=== PATIENT | female | born 1965 | race Two or more races ===

== ENCOUNTER 2019-12-09 11:48 | Emergency (ER) | payer OTHER ==
[~2019-12-09] VITALS: Ht 160 cm; Wt 89.4 kg
[2019-12-09 11:50] VITALS: BP 144/79
--- NOTE | 2019-12-09 12:38 | NUR ---
Pt here for suture removal of abdomen from her post sbo. Pt denies any complications or concerns. Pt had sutures removed by MD. Pt had steri strips attached to abdomen.
--- NOTE | 2019-12-09 12:43 | NUR ---
Patient/Caregiver given discharge instructions and they have confirmed that they understand the instructions. Patient ambulatory with steady gait.
== END 2019-12-09 12:46 | disposition home or self-care (01) ==
LOC: ED 12:40
DX: S31.114D Laceration without foreign body of abdominal wall, left lower quadrant without penetration into peritoneal cavity, subsequent encounter (principal); X58.XXXD Exposure to other specified factors, subsequent encounter
CPT/HCPCS: 99281; 99282

== ENCOUNTER 2020-01-08 13:19 | Observation (INO) | payer OTHER ==
[~2020-01-08] VITALS: Ht 152.4 cm; Wt 88.8 kg
[2020-01-08] MEDS ORDERED: ASPIRIN 81 MG TABLET CHEW PO ONE (14:00)
[2020-01-08] MEDS ORDERED: ASPIRIN 81 MG TABLET EC ONE (14:01)
[2020-01-08 14:02] LABS: BASOPHILS # (AUTO) 0.02 x10^3/uL (0-0.1); BASOPHILS % (AUTO) 0 % (0-1); EOSINOPHILS # (AUTO) 0.05 x10^3/uL (0-0.4); EOSINOPHILS % (AUTO) 1 % (1-7); LYMPHOCYTES # (AUTO) 1.14 x10^3/uL (1-3.4); LYMPHOCYTES % (AUTO) 15 % (22-44); MD NO; MEAN CORPUSCULAR HEMOGLOBIN 28.5 pg (27.0-34.8); MEAN CORPUSCULAR HGB CONC 32.6 g/dL (32.4-35.8); MEAN CORPUSCULAR VOLUME 87.5 fL (80-100); MEAN PLATELET VOLUME 9.9 fL (7.4-10.4); MONOCYTES # (AUTO) 0.46 x10^3/uL (0.2-0.8); MONOCYTES % (AUTO) 6 % (2-9); NEUTROPHILS # (AUTO) 5.96 x10^3/uL (1.8-6.8); NEUTROPHILS % (AUTO) 78 % (42-75); PLATELET COUNT 216 x10^3/uL (130-400); RED BLOOD COUNT 4.62 x10^6/uL (3.82-5.3); RED CELL DISTRIBUTION WIDTH 13.9 % (9.6-15.2)
[2020-01-08 14:14] LABS: ALANINE AMINOTRANSFERASE 38 U/L (12-78); ANION GAP 7 mmol/L (5-15); CALCIUM 9.1 mg/dL (8.5-10.1); CHLORIDE 108 mmol/L (98-107); CREATININE 0.76 mg/dL (0.55-1.02)
[2020-01-08 14:18] LABS: ALKALINE PHOSPHATASE 125 U/L (45-117); BILIRUBIN,TOTAL 0.3 mg/dL (0.2-1.0); TROPONIN I < 0.015 ng/mL (0.000-0.045)
--- NOTE | 2020-01-08 14:24 | NUR ---
pt presents to ED with c/o left sided chest pain onset 3 days ago, pt states pain is dull, with no aggravating factors. pain radiates to left neck and left arm. pt denies injury or trauma. pt states pain is 10/10, however pt remains calm and is conversing easily with providers and who is at bedside. pt denies recent travel, denies contraceptive use, pt denies sob. pt states she has not taken aspirin today and denies having any allergies. EKG taken in triage, lab results and cxr pending pt updated with POC, agreeable. at bedside. 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
[2020-01-08] MEDS ORDERED: ASPIRIN 81 MG TABLET CHEW ONE (14:29)
--- NOTE | 2020-01-08 14:33 | NUR ---
pt medicated per emar, tolerated well. all results back , chart up for recheck, awaiting MD and dispo.
--- NOTE | 2020-01-08 15:14 | NUR ---
report given to FLOYD Nunez who is assuming care.
[2020-01-08] MEDS ORDERED: TELM20TA PO (16:11)
--- NOTE | 2020-01-08 16:21 | NUR ---
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 aggrees to admission will place iv
[2020-01-08] MEDS ORDERED: POLYETHYLENE GLYCOL 17 GM PACKET PO PRN (16:30)
[2020-01-08] MEDS ORDERED: ACETAMINOPHEN 325 MG TABLET PO PRN (16:30)
[2020-01-08] MEDS ORDERED: ONDANSETRON ODT 4 MG PO PRN (16:30)
[2020-01-08] MEDS ORDERED: ONDANSETRON 2MG/ML, 2ML IVPush PRN (16:30)
[2020-01-08] MEDS ORDERED: DOCUSATE 100 MG CAPSULE PO PRN (16:30)
[2020-01-08 20:11] VITALS: BP 136/81
[2020-01-08] MEDS ORDERED: ATORVASTATIN 40 MG TABLET PO SCH (21:00)
[2020-01-08] MEDS ORDERED: OMNIPAQUE 350 MG/ML, 100ML BOTTLE ONE (21:38)
[2020-01-09 00:28] VITALS: BP 122/77
[2020-01-09 05:23] LABS: CHOL/HDL RATIO 3.5; CHOLESTEROL, TOTAL 255 mg/dL (140-239); HDL CHOL % 28 % (28-40); HDL CHOLESTEROL (DIRECT) 72 mg/dL (40-60); LDL CHOLESTEROL,CALCULATED 156 mg/dL (54-169); LDL/HDL RATIO 2.2 (0.5-3.0); TRIGLYCERIDES 136 mg/dL (50-200); TROPONIN I < 0.015 ng/mL (0.000-0.045); VLDL CHOLESTEROL 27 mg/dL (0-25)
[2020-01-09] MEDS ORDERED: ASPIRIN 81 MG TABLET EC PO SCH (06:00)
[2020-01-09 06:28] VITALS: BP 137/82
[2020-01-09 12:26] VITALS: BP 122/74
[2020-01-09] MEDS ORDERED: ATOR40TA78 PO (13:18)
== END 2020-01-09 16:00 | disposition home or self-care (01) ==
LOC: ED 14:52 → EDIP 16:21 → 5SO 17:01 → DCLOUNGE 01-09 15:49
PROVIDERS: ADMIT Family Medicine; ATTEND Family Medicine
DX: R07.89 Other chest pain (principal); I10 Essential (primary) hypertension; E78.5 Hyperlipidemia, unspecified; F41.8 Other specified anxiety disorders; E66.9 Obesity, unspecified; Z79.899 Other long term (current) drug therapy
CPT/HCPCS: 36415; 71045; 71275; 80053; 80061; 82962; 83036; 84484; 85025; 85379; 93005; 93017; 99285; G0378; Q9967

== ENCOUNTER 2020-02-19 13:01 | Emergency (ER) | payer OTHER ==
[~2020-02-19] VITALS: Ht 160 cm; Wt 90.6 kg
[~2020-02-19 13:01] MED LIST: ATOR40TA78 PO; TELM20TA PO
[2020-02-19 13:40] LABS: BASOPHILS % (AUTO) 1 % (0-1); EOSINOPHILS % (AUTO) 1 % (1-7); LYMPHOCYTES % (AUTO) 25 % (22-44); MEAN CORPUSCULAR HEMOGLOBIN 28.6 pg (27.0-34.8); MEAN CORPUSCULAR HGB CONC 32.4 g/dL (32.4-35.8); MEAN PLATELET VOLUME 9.9 fL (7.4-10.4); MONOCYTES % (AUTO) 5 % (2-9); NEUTROPHILS % (AUTO) 69 % (42-75); PLATELET COUNT 196 x10^3/uL (130-400); RED BLOOD COUNT 4.29 x10^6/uL (3.82-5.3); RED CELL DISTRIBUTION WIDTH 15.2 % (9.6-15.2)
[2020-02-19 13:49] LABS: MD NO
[2020-02-19 13:55] LABS: CHLORIDE 111 mmol/L (98-107)
[2020-02-19] MEDS ORDERED: KETOROLAC 30 MG/1 ML ONE (13:57)
[2020-02-19] MEDS ORDERED: KETOROLAC 30 MG/1 ML IM ONE (14:00)
[2020-02-19 14:03] VITALS: BP 135/68
[2020-02-19 14:05] LABS: ALANINE AMINOTRANSFERASE 30 U/L (12-78); ALBUMIN 3.9 g/dL (3.4-5.0); ALKALINE PHOSPHATASE 115 U/L (45-117); ANION GAP 7 mmol/L (5-15); BILIRUBIN,TOTAL 0.3 mg/dL (0.2-1.0); CALCIUM 9.6 mg/dL (8.5-10.1); CREATININE 0.69 mg/dL (0.55-1.02); TOTAL PROTEIN 7.5 g/dL (6.4-8.2); TROPONIN I < 0.015 ng/mL (0.000-0.045)
== END 2020-02-19 14:52 | disposition home or self-care (01) ==
LOC: ED 14:30
DX: R07.89 Other chest pain (principal); I49.1 Atrial premature depolarization; I10 Essential (primary) hypertension
CPT/HCPCS: 36415; 71046; 80053; 84484; 85025; 93005; 96372; 99285; J1885